=== PATIENT | female | born 1965 | race Caucasian/White ===

== ENCOUNTER 2017-06-05 03:47 | Emergency (ER) | payer MEDICAID ==
[~2017-06-05] VITALS: Ht 162.6 cm; Wt 85.8 kg
[~2017-06-05 03:47] MED LIST: ATOR20TA9 PO; DIVA-68 PO; DIVA500T2 PO; FENO160T PO; GUAI-110 PO; HYDR12.58 PO; LEVE500T53 PO; LEVO750T26 PO; LISI-170 PO; OMEP-110 PO; ROSU20TA PO; TIZA2CAP PO
[2017-06-05] MEDS ORDERED: SILVER NITRATE STICK TP ONE (04:04)
[2017-06-05] MEDS ORDERED: OXYMETAZOLINE NASAL SPRAY 0.05%, 15ML ONE ×2 (04:04)
[2017-06-05] MEDS ORDERED: COCAINE TOPICAL SOLN 4%, 4ML ONE (04:55)
[2017-06-05] MEDS ORDERED: ONDANSETRON 2MG/ML, 2ML IVPush ONE (05:00)
[2017-06-05] MEDS ORDERED: LORazepam 2 MG/ML, 1ML IVPush ONE (05:00)
[2017-06-05] MEDS ORDERED: SODIUM CHLORIDE 0.9% 1,000ML IVBOLUS ONE (05:00)
[2017-06-05] MEDS ORDERED: COCAINE TOPICAL SOLN 4%, 4ML TP ONE (05:00)
[2017-06-05] MEDS ORDERED: LORazepam 1MG TABLET PO ONE (05:00)
[2017-06-05] MEDS ORDERED: ONDANSETRON 2MG/ML, 2ML ONE (05:05)
[2017-06-05] MEDS ORDERED: LORazepam 2 MG/ML, 1ML ONE (05:05)
[2017-06-05 05:09] LABS: HEMATOCRIT 37.5 % (34.6-47.8); HEMOGLOBIN 12.3 g/dL (11.7-16.4); WHITE BLOOD COUNT 11.5 x10^3/uL (3.4-10)
[2017-06-05] MEDS ORDERED: BACITRACIN ZINC OINT 500U/GM, 0.9 GM ONE (05:11)
[2017-06-05 05:45] VITALS: BP 110/73
== END 2017-06-05 06:29 | disposition home or self-care (01) ==
LOC: ED 04:33
DX: R04.0 Epistaxis (principal); I10 Essential (primary) hypertension
CPT/HCPCS: 36415; 85025; 96374; 96375; 99284; J2060; J2405; J7030

== ENCOUNTER 2017-06-08 06:44 | Emergency (ER) | payer MEDICAID ==
[~2017-06-08] VITALS: Ht 157.5 cm; Wt 88.0 kg
[2017-06-08 06:47] VITALS: BP 109/70
[2017-06-08] MEDS ORDERED: HYDROcodone/APAP 5/325 TABLET ONE (07:45)
[2017-06-08] MEDS ORDERED: HYDROcodone/APAP 5/325 TABLET PO ONE (08:00)
== END 2017-06-08 08:10 | disposition home or self-care (01) ==
LOC: ED 07:50
DX: R04.0 Epistaxis (principal); I10 Essential (primary) hypertension
CPT/HCPCS: 99283

== ENCOUNTER → 2018-01-29 | Outpatient (CLI) | payer MEDICAID | LOC: CVU 08:45 | PROVIDERS: ATTEND Internal Medicine Cardiovascular Disease | DX: I51.7 Cardiomegaly (principal); E11.9 Type 2 diabetes mellitus without complications; I10 Essential (primary) hypertension; E78.5 Hyperlipidemia, unspecified; I49.3 Ventricular premature depolarization | CPT/HCPCS: 93306 ==

== ENCOUNTER → 2020-12-13 | Outpatient (CLI) | payer MEDICARE, MEDICAID ==
[~2020-12-13] MED LIST changes: +ATOR20TA37 PO; -ATOR20TA9 PO; +DIVA-61 PO; -DIVA-68 PO; -HYDR12.58 PO; +HYDROCHLOROTH12.5 MG PO; -ROSU20TA PO; +ROSU20TA2 PO
== END | disposition home or self-care (01) ==
LOC: CFH 13:30
PROVIDERS: ATTEND Registered Nurse
DX: I08.8 Other rheumatic multiple valve diseases (principal); I11.9 Hypertensive heart disease without heart failure
CPT/HCPCS: 93306